=== PATIENT | female | born 1950 | race Caucasian/White ===

== ENCOUNTER 2020-04-02 08:11 | Inpatient (IN) ==
[2020-04-02] MEDS ORDERED: Dexamethasone 4 MG/ML VIAL ONE (08:26)
[2020-04-02] MEDS ORDERED: Lidocaine -MPF 2% 2 ML VIAL ONE (08:26)
[2020-04-02] MEDS ORDERED: Ondansetron 4 MG/2 ML VIAL ONE (08:26)
[2020-04-02] MEDS ORDERED: *HR* Propofol 200 MG/20 ML VIAL IVP ONE (08:26)
[2020-04-02] MEDS ORDERED: *HR* Rocuronium Bromide 50 MG/5 ML VIAL ONE ×2 (08:26→11:16)
[2020-04-02] MEDS ORDERED: 0.9 % Sodium Chloride 500 ML IVC PRN (08:34)
[2020-04-02] MEDS ORDERED: Naloxone 0.4 MG/ML INJ IVP PRN ×2 (08:34→14:53)
[2020-04-02] MEDS ORDERED: *HR* Ropivacaine/PF 0.2% 10 ML AMPUL EP ONE (08:34)
[2020-04-02] MEDS ORDERED: *HR* Promethazine 25 MG/ML VIAL IVP PRN (08:39)
[2020-04-02] MEDS ORDERED: *HR* Midazolam HCl 2 MG/2 ML VIAL IVP PRN (08:39)
[2020-04-02] MEDS ORDERED: *HR* FentaNYL (PF) 100 MCG/2 ML VIAL IVP PRN (08:39)
[2020-04-02] MEDS ORDERED: Acetaminophen IV 1,000 MG/100 ML INFUS..BTL IVPB ONE (08:39)
[2020-04-02] MEDS ORDERED: *HR* HYDROmorphone PF 0.5 MG/0.5 ML SYRINGE IVP PRN ×2 (08:39→08:57)
[2020-04-02] MEDS ORDERED: *HR* Meperidine 25 MG/ML SYRINGE IVP PRN (08:39)
[2020-04-02] MEDS ORDERED: diazePAM 5 MG TABLET PO ONE (08:39)
[2020-04-02] MEDS ORDERED: Ropivacaine/PF 0.2% 200 ML EP SCH (08:45)
[2020-04-02] MEDS ORDERED: cefOXitin 2,000 MG in Water for inj. (sterile) 20 ML IVP ONE (08:51)
[2020-04-02] MEDS ORDERED: Ringers Solution, Lactated 1,000 ML IVC SCH (09:00)
[2020-04-02] MEDS ORDERED: *HR* FentaNYL (PF) 100 MCG/2 ML VIAL ONE (09:07)
[2020-04-02] MEDS ORDERED: Ropivacaine/PF 0.5% 30 ML VIAL ONE (09:26)
[2020-04-02] MEDS ORDERED: EPHEDrine 50 MG/ML VIAL ONE (10:53)
[2020-04-02] MEDS ORDERED: Ondansetron 4 MG/2 ML VIAL IVP PRN (14:53)
[2020-04-02] MEDS: Ringers Solution, Lactated 1,000 ML IVC SCH (15:22)
[2020-04-02] MEDS: Ropivacaine/PF 0.2% 200 ML EP SCH (15:25)
[2020-04-02] MEDS ORDERED: cefOXitin 2,000 MG in Water for inj. (sterile) 10 ML IVP ONE (18:00)
[2020-04-03] MEDS: Ringers Solution, Lactated 1,000 ML IVC SCH ×2 (01:03→09:31)
[2020-04-03 01:58] LABS: Basophils % 0.3 %; Hematocrit 30.5 % (35.3-44.9); Hemoglobin 10.1 g/dL (11.5-15.4); Immature Granulocytes % 0.4 % (0-4); Lymphocytes # 0.7 K/mcL (0.6-4.6); Lymphocytes % 5.2 %; Mean Corpuscular HGB Conc 33.1 g/dL (31.6-35.5); Mean Corpuscular Hemoglobin 30.4 pg (28.0-33.3); Mean Corpuscular Volume 91.9 fL (83.0-100.0); Mean Platelet Volume 11.2 fL (9.4-12.4); Monocytes # 0.7 K/mcL (0.0-1.3); Monocytes % 5.5 %; Neutrophils # 11.3 K/mcL (1.6-8.9); Platelet Count 117 K/mcL (140-400); Red Blood Count 3.32 M/mcL (3.82-4.97); Red Cell Distribution Width 15.1 % (11.5-14.5); Segmented Neutrophils % 88.6 %; White Blood Count 12.8 K/mcL (4.3-11.1)
[2020-04-03 02:19] LABS: BUN/Creatinine Ratio 13 (6-26); Blood Urea Nitrogen 12 mg/dL (8-23); Calcium 7.9 mg/dL (8.6-10.3); Carbon Dioxide 25 mEq/L (23-29); Chloride 111 mEq/L (98-107); Glucose 123 mg/dL (70-105); Magnesium 1.5 mg/dL (1.6-2.6); Osmolality,Calculated 293 (280-300); Phosphorous 2.9 mg/dL (2.7-4.5); Potassium 4.5 mEq/L (3.5-5.1); Sodium 141 mEq/L (136-145); eGFR For African Americans > 60 (> 60); eGFR For Non-African Americans > 60 (> 60)
[2020-04-03] MEDS: Pantoprazole 40 MG VIAL IVP SCH (09:32)
[2020-04-03] MEDS: lisinopriL 10 MG TABLET PO SCH (09:39)
[2020-04-03] MEDS: amLODIPine 5 MG TABLET PO SCH (09:39)
[2020-04-03] MEDS: Ropivacaine/PF 0.2% 200 ML EP SCH (09:44)
[2020-04-03] MEDS: Acetaminophen IV 1,000 MG/100 ML INFUS..BTL IVPB PRN ×2 (13:25→23:38)
[2020-04-03] MEDS: D5% in 0.45% NACL 1,000 ML IVC SCH ×2 (13:49→22:33)
[2020-04-04 03:20] LABS: BUN/Creatinine Ratio 16 (6-26); Blood Urea Nitrogen 13 mg/dL (8-23); Calcium 7.4 mg/dL (8.6-10.3); Carbon Dioxide 23 mEq/L (23-29); Chloride 110 mEq/L (98-107); Glucose 142 mg/dL (70-105); Magnesium 1.8 mg/dL (1.6-2.6); Osmolality,Calculated 289 (280-300); Phosphorous 2.3 mg/dL (2.7-4.5); Potassium 3.9 mEq/L (3.5-5.1); Sodium 138 mEq/L (136-145); eGFR For African Americans > 60 (> 60); eGFR For Non-African Americans > 60 (> 60)
[2020-04-04 04:37] LABS: Basophils % 0.3 %; Lymphocytes % 10.7 %
[2020-04-04 04:39] LABS: Eosinophils # 0.1 K/mcL (0.0-0.6); Eosinophils % 1.5 %; Hematocrit 28.1 % (35.3-44.9); Hemoglobin 8.9 g/dL (11.5-15.4); Immature Granulocytes % 0.4 % (0-4); Immature Platelets 3.2 % (1.1-6.1); Mean Corpuscular HGB Conc 31.7 g/dL (31.6-35.5); Mean Corpuscular Hemoglobin 29.3 pg (28.0-33.3); Mean Corpuscular Volume 92.4 fL (83.0-100.0); Monocytes # 0.8 K/mcL (0.0-1.3); Monocytes % 8.3 %; Neutrophils # 7.4 K/mcL (1.6-8.9); Red Blood Count 3.04 M/mcL (3.82-4.97); Red Cell Distribution Width 15.2 % (11.5-14.5); Segmented Neutrophils % 78.8 %; White Blood Count 9.4 K/mcL (4.3-11.1)
[2020-04-04 05:44] LABS: Platelet Count 93 K/mcL (140-400)
[2020-04-04 05:46] LABS: Anisocytosis 1+ (Not Present); Platelet Estimate Slight Decrease (Normal)
[2020-04-04] MEDS: D5% in 0.45% NACL 1,000 ML IVC SCH ×2 (08:15→15:32)
[2020-04-04] MEDS: Pantoprazole 40 MG VIAL IVP SCH (08:16)
[2020-04-04] MEDS ORDERED: Potassium Phosphate 44 MEQ in 0.9 % Sodium Chloride 250 ML IVPB ONE (08:30)
[2020-04-04] MEDS: Ropivacaine/PF 0.2% 200 ML EP SCH (09:35)
[2020-04-04] MEDS: amLODIPine 5 MG TABLET PO SCH (14:01)
[2020-04-04] MEDS: lisinopriL 10 MG TABLET PO SCH (14:02)
[2020-04-04 15:59] LABS: Basophils % 0.3 %; Eosinophils # 0.2 K/mcL (0.0-0.6); Hematocrit 31.1 % (35.3-44.9); Immature Granulocytes % 0.4 % (0-4); Lymphocytes # 0.7 K/mcL (0.6-4.6); Lymphocytes % 5.9 %; Mean Corpuscular HGB Conc 32.2 g/dL (31.6-35.5); Mean Corpuscular Hemoglobin 29.9 pg (28.0-33.3); Mean Corpuscular Volume 93.1 fL (83.0-100.0); Mean Platelet Volume 11.2 fL (9.4-12.4); Monocytes # 0.8 K/mcL (0.0-1.3); Monocytes % 6.5 %; Neutrophils # 9.8 K/mcL (1.6-8.9); Platelet Count 113 K/mcL (140-400); Red Blood Count 3.34 M/mcL (3.82-4.97); Red Cell Distribution Width 14.8 % (11.5-14.5); Segmented Neutrophils % 84.9 %; White Blood Count 11.5 K/mcL (4.3-11.1)
[2020-04-04 22:34] LABS: Basophils % 0.4 %; Eosinophils # 0.2 K/mcL (0.0-0.6); Eosinophils % 2.4 %; Hematocrit 31.1 % (35.3-44.9); Hemoglobin 9.8 g/dL (11.5-15.4); Immature Granulocytes % 0.3 % (0-4); Lymphocytes # 0.8 K/mcL (0.6-4.6); Lymphocytes % 7.8 %; Mean Corpuscular HGB Conc 31.5 g/dL (31.6-35.5); Mean Corpuscular Hemoglobin 29.4 pg (28.0-33.3); Mean Corpuscular Volume 93.4 fL (83.0-100.0); Mean Platelet Volume 10.7 fL (9.4-12.4); Monocytes # 0.7 K/mcL (0.0-1.3); Monocytes % 6.6 %; Neutrophils # 8.3 K/mcL (1.6-8.9); Platelet Count 121 K/mcL (140-400); Red Blood Count 3.33 M/mcL (3.82-4.97); Red Cell Distribution Width 14.6 % (11.5-14.5); Segmented Neutrophils % 82.5 %
[2020-04-05] MEDS: D5% in 0.45% NACL 1,000 ML IVC SCH ×4 (02:54→19:39)
[2020-04-05 03:39] LABS: Magnesium 1.7 mg/dL (1.6-2.6); Phosphorous 2.4 mg/dL (2.7-4.5)
[2020-04-05 03:41] LABS: Alanine Aminotransferase 18 Units/L (7-52); Albumin 2.5 g/dL (3.5-5.7); Albumin/Globulin Ratio 1.1 (1.1-2.2); Alkaline Phosphatase 34 Units/L (34-104); Aspartate Amino Transferase 26 Units/L (13-39); BUN/Creatinine Ratio 12 (6-26); Bilirubin,Total 0.5 mg/dL (0.3-1.0); Blood Urea Nitrogen 8 mg/dL (8-23); Calcium 7.4 mg/dL (8.6-10.3); Carbon Dioxide 24 mEq/L (23-29); Chloride 112 mEq/L (98-107); Globulin 2.2 g/dL (2.4-3.5); Glucose 103 mg/dL (70-105); Osmolality,Calculated 289 (280-300); Potassium 3.9 mEq/L (3.5-5.1); Sodium 140 mEq/L (136-145); Total Protein 4.7 g/dL (6.4-8.9); eGFR For African Americans > 60 (> 60); eGFR For Non-African Americans > 60 (> 60)
[2020-04-05] MEDS: Pantoprazole 40 MG VIAL IVP SCH (10:04)
[2020-04-05] MEDS: Ropivacaine/PF 0.2% 200 ML EP SCH (10:04)
[2020-04-05] MEDS: lisinopriL 10 MG TABLET PO SCH (10:04)
[2020-04-05] MEDS: amLODIPine 5 MG TABLET PO SCH (10:04)
[2020-04-05] MEDS ORDERED: Acetaminophen 325 MG TABLET PO PRN (10:29)
[2020-04-05] MEDS ORDERED: Potassium Phosphate 44 MEQ in 0.9 % Sodium Chloride 250 ML IVPB ONE (10:32)
[2020-04-06 02:16] LABS: Basophils % 0.3 %; Eosinophils # 0.3 K/mcL (0.0-0.6); Eosinophils % 3.6 %; Hematocrit 30.3 % (35.3-44.9); Hemoglobin 9.9 g/dL (11.5-15.4); Immature Granulocytes % 0.3 % (0-4); Lymphocytes # 0.9 K/mcL (0.6-4.6); Lymphocytes % 9.1 %; Mean Corpuscular HGB Conc 32.7 g/dL (31.6-35.5); Mean Corpuscular Hemoglobin 30.3 pg (28.0-33.3); Mean Corpuscular Volume 92.7 fL (83.0-100.0); Mean Platelet Volume 10.5 fL (9.4-12.4); Monocytes # 0.7 K/mcL (0.0-1.3); Monocytes % 7.5 %; Neutrophils # 7.5 K/mcL (1.6-8.9); Platelet Count 155 K/mcL (140-400); Red Blood Count 3.27 M/mcL (3.82-4.97); Red Cell Distribution Width 14.5 % (11.5-14.5); Segmented Neutrophils % 79.2 %; White Blood Count 9.5 K/mcL (4.3-11.1)
[2020-04-06] MEDS ORDERED: *HR* OxyCODONE/APAP 5/325 TABLET PO PRN (07:55)
[2020-04-06] MEDS: amLODIPine 5 MG TABLET PO SCH (08:05)
[2020-04-06] MEDS: lisinopriL 10 MG TABLET PO SCH (08:05)
[2020-04-06 08:25] VITALS: BP 125/81
== END 2020-04-06 13:15 | disposition home or self-care (01) | DRG 330 ==
LOC: SAMDAY 08:11 → 3ANU 14:27
PROVIDERS: ADMIT Surgery; ATTEND Surgery